=== PATIENT | female | born 1955 | race Caucasian/White ===

== ENCOUNTER → 2016-10-20 | Outpatient (CLI) | payer BC ==
[~2016-10-20] MED LIST: ACET500T33 PO; CYCL10TA2 PO; ESOM40CA PO; GABA-586 PO; HYDR-2762 PO; IBUP-1060 PO; IOHEXOL 180 MG/ML 10 ML VIAL. ONE; MELO7.5T29 PO; methylPREDNISolone ACETATE 40 MG/ML VIAL. ONE; methylPREDNISolone ACETATE 80 MG/ML VIAL. ONE
--- NOTE | 2016-10-21 01:46 | PAIN ---
DATE OF SERVICE: 10/20/2016 INITIAL CONSULTATION FOR PAIN CLINIC CHIEF COMPLAINT: Low back and left lower extremity pain. HISTORY OF PRESENT ILLNESS: This is a 61-year-old female who presents with history of pain for about 2 months, increasing gradually, not a result of any specific injury or action that she is aware of, but ____ over time with increased activity. She has noticed increased pain in the low back initially and then it started radiating to the left posterior gluteus, posterior thigh, posterior lateral thigh and posterior calf. Intermittently, the patient reports it is also on the lateral lower leg, which is painful. It is sharp, stabbing, throbbing in quality, radiating pain, intermittent in intensity, but is becoming more and more constant over time. The patient has had some therapies in the past and doing some exercises on her own off and on, but she stays very active, playing golf, does a lot of bowling and other activities and this is beginning to impede them to some extent. The patient reports she has tried cyclobenzaprine as well as Meloxicam and gabapentin, which helps, but only to a moderate extent, mostly the Meloxicam. The patient reports no loss of motor function, no other complaints, but has been awakening her from sleep about once or twice at night, but not every night. It does not affect her bowel or bladder control, slows her ability to walk, but does not impede it. She is not using any assistive device to ambulate such as canes or walkers. The patient did have previous lumbar laminectomy at the L5-S1 level on the right about 3 years ago. The patient reports her disability rating from 0-10, 10 being the worst, as a 3-6 with family and home responsibilities, also recreation, 3-4 with social activity, 0-1 with occupation, 0-2 with sexual behavior, 0-3 with self-care and 1/10 with life support activities. The patient did have a recent MRI scan of the lumbar spine dated 09/24/2016 showing multilevel disk bulges of annular tears in the neural foraminal region, lateral recess locations L3-L4 and L2-L3 in the left, postoperative changes posteriorly on the right at L5-S1 without significant ____ scar tissue noted with mild to moderate bulging of L5-S1 disk and L4-L5 disk space narrowing and mild bulging identified as well. PAST MEDICAL HISTORY: Significant for gastroesophageal reflux, hypertension and arthritis. PREVIOUS SURGERY: Include lumbar laminectomy, left knee meniscus repair, right carpal tunnel release and trigger thumbs release bilaterally. CURRENT MEDICATIONS: Include cyclobenzaprine, gabapentin, meloxicam, esomeprazole, and Tylenol. ALLERGIES: THE PATIENT IS ALLERGIC TO TRAMADOL AND HYDROCODONE, BOTH OF WHICH CAUSE HIVES. FAMILY HISTORY: Significant for kidney failure in the patient's mother and heart disease in the patient's father. SOCIAL HISTORY: The patient drinks alcohol about once a week on average, does not smoke. She is , lives with her spouse. No children living at home, lives locally in [place], [place]. REVIEW OF SYSTEMS: The patient's review of systems is positive for those items mentioned in the history of present illness. All systems reviewed and otherwise negative. It is complete, full and well documented on the patient's chart. PHYSICAL EXAMINATION: VITAL SIGNS: The patient's blood pressure 162/97, pulse 77, respirations 18, temperature 98.6 degrees Fahrenheit, height is 5 feet 6-1/2 inches, weight 166 pounds. GENERAL: The patient is awake, alert, oriented, appropriate, very pleasant demeanor. HEENT: Head shows normocephalic, atraumatic. Extraocular movements are intact, symmetrical. Oral cavity, mucous membranes are moist and pink. Dentition is intact. NECK: Shows anterior throat supple without palpable lymphadenopathy noted. Swallow reflex is symmetrical. CHEST: Shows normal on inspection. Breath sounds clear to auscultation bilaterally. HEART: Shows S1 and S2 clear. No murmurs auscultated. ABDOMEN: Soft, nontender, nondistended. No palpable organomegaly. No rebound or guarding demonstrated. BACK: Shows spine grossly in the midline, normal-appearing cervical lordotic curvature, thoracic kyphotic curvature and some slight flattening of lumbar lordotic curvature with well-healed surgical scar noted in the lumbar distribution. Lumbar paraspinous musculature shows symmetrical on inspection with palpation shows some very mild tenderness, but only diffusely in the lower lumbar distribution bilaterally and the paraspinous distribution, but without radiation. No tenderness over the spinous processes, sacrum or sacroiliac regions. The patient shows full rotational motion both laterally greater than 10 degrees right and left as well as extension greater than 10 degrees, forward flexion 45 degrees without exacerbation of pain. Lower extremities show deep tendon reflexes at 2+ in the patellar, 1+ tendo-calcaneus tendons are equal. Motor exam is strong with 5/5 dorsiflexion, extension, quadriceps and hamstring flexion and are symmetrical. Peripheral pulses are 1+ posterior tibial and dorsalis pedis pulses. No peripheral edema is noted. No clubbing, no cyanosis. Lower extremities are warm and dry to touch, equal in color and appearance. Straight leg raise noted to be negative for reproduction of any radicular symptoms bilaterally. Gaenslen's and Jeff's maneuvers are negative bilaterally as well. The patient is able to stand, stand on her toes without difficulty or loss of balance. She is able to walk without difficulty and does not appear to favor the right or left lower extremity, not using any assistive devices to ambulate. IMPRESSION: 1. This is a 61-year-old female with approximately 2-month history of increasing pain in low back, left lower extremity in a radicular fashion. 2. MRI scan as noted. 3. History of hypertension. 4. History of arthritis. PLAN: Options were discussed with the patient including conservative medical management, physical therapy, interventional techniques and she would like to pursue interventional techniques. We discussed a lumbar epidural steroid injection with a caudal approach using description as well as anatomical models to describe the procedure. Risks were then discussed including, but not limited to, bleeding, infection, possibility of epidural hematoma, subsequent neurologic compromise, dural puncture, headaches, spinal cord and/or nerve damage, side effects of steroid medication and poor results regarding pain control. The patient understands and wishes to proceed. The patient will return to clinic in approximately 2 weeks for followup, was counseled on return appointment, activity level and side effects to be aware of. DIAGNOSES: Lumbar radiculopathy with lumbar degenerative disk disease and post-lumbar laminectomy syndrome. PROCEDURE: Caudal approach epidural steroid injection using C-arm fluoroscopic guidance under sterile prep and drape using local anesthetic. MEDICATION INJECTED: 120 mg Depo-Medrol plus 10 mL of preservative-free normal saline and 2 mL of Isovue contrast. CONDITION AT DISCHARGE: Stable. The patient tolerated the procedure well, had no complications. MELINDA LAM MD DR: LEATHA/ahmet JOB#: [id number] / [id number] VENKAT oLck MD
== END | disposition home or self-care (01) ==
LOC: PNCL 07:28
PROVIDERS: ATTEND Anesthesiology
DX: M51.16 Intervertebral disc disorders with radiculopathy, lumbar region (principal); M96.1 Postlaminectomy syndrome, not elsewhere classified; M19.90 Unspecified osteoarthritis, unspecified site; I10 Essential (primary) hypertension; K21.9 Gastro-esophageal reflux disease without esophagitis; Z72.89 Other problems related to lifestyle; Z88.6 Allergy status to analgesic agent; Z88.5 Allergy status to narcotic agent
CPT/HCPCS: 62323; J1030; J1040

== ENCOUNTER → 2016-11-18 | Outpatient (CLI) | payer BC | END | disposition home or self-care (01) | LOC: PNCL 09:06 | PROVIDERS: ATTEND Anesthesiology | DX: M51.16 Intervertebral disc disorders with radiculopathy, lumbar region (principal); M96.1 Postlaminectomy syndrome, not elsewhere classified; M19.90 Unspecified osteoarthritis, unspecified site; I10 Essential (primary) hypertension; K21.9 Gastro-esophageal reflux disease without esophagitis; Z72.89 Other problems related to lifestyle; Z91.048 Other nonmedicinal substance allergy status | CPT/HCPCS: 62323; J1030; J1040 ==

== ENCOUNTER → 2017-10-25 | Outpatient (CLI) | payer BC ==
[2017-10-25 14:54] LABS: ADD MAN DIFF? NO
[2017-10-25 14:56] LABS: BASO % 1 % (0-3); EOS # 0.1 x10^3/uL (0.0-0.7); EOS % 2 % (0-3); HEMATOCRIT 38.9 % (36.0-47.0); HEMOGLOBIN 13.7 g/dL (12.0-15.5); LYMPH # 1.6 x10^3/uL (1.0-4.8); LYMPH % 27 % (24-48); MEAN CORPUSCULAR HEMOGLOBIN 33 pg (25-35); MEAN CORPUSCULAR HGB CONC 35 g/dL (31-37); MEAN CORPUSCULAR VOLUME 93 fL (79-100); MONO # 0.4 x10^3/uL (0.0-1.1); MONO % 7 % (0-9); NEUT # 3.7 x10^3uL (1.8-7.7); NEUT % 64 % (31-73); PLATELET COUNT 250 x10^3/uL (140-400); RED BLOOD COUNT 4.19 x10^6/uL (3.50-5.40); RED CELL DISTRIBUTION WIDTH 12.8 % (11.5-14.5); WHITE BLOOD COUNT 5.8 x10^3/uL (4.0-11.0)
[2017-10-25 15:12] LABS: ALBUMIN 3.9 g/dL (3.4-5.0); ALBUMIN/GLOBULIN RATIO 1.1 (1.0-1.7); ALK PHOS 89 U/L (46-116); ALT (SGPT) 69 U/L (14-59); ANION GAP 13 (6-14); AST (SGOT) 23 U/L (15-37); BLOOD UREA NITROGEN 14 mg/dL (7-20); BUN/CREATININE RATIO 16 (6-20); CALCIUM 9.1 mg/dL (8.5-10.1); CARBON DIOXIDE 28 mmol/L (21-32); CHLORIDE 97 mmol/L (98-107); CREATININE 0.9 mg/dL (0.6-1.0); GFR 63.9; GLUCOSE 86 mg/dL (70-99); POTASSIUM 3.9 mmol/L (3.5-5.1); SODIUM 138 mmol/L (136-145); TOTAL BILIRUBIN 0.8 mg/dL (0.2-1.0); TOTAL PROTEIN 7.3 g/dL (6.4-8.2)
[2017-10-26 22:20] LABS: MRSA BY PCR Negative (Negative)
== END | disposition home or self-care (01) ==
LOC: SURGPAT 14:19
DX: Z01.818 Encounter for other preprocedural examination (principal); M54.16 Radiculopathy, lumbar region; M48.061 Spinal stenosis, lumbar region without neurogenic claudication
CPT/HCPCS: 36415; 80053; 85025; 87641

== ENCOUNTER 2017-11-15 07:04 | Observation (INO) | payer BC ==
[~2017-11-15 07:04] MED LIST changes: -ACET500T33 PO; -CYCL10TA2 PO; +DESFLURANE 61 TO 120 MINUTES IH; +DEXAMETHASONE SOD PHOS 20 MG/5 ML VIAL.; -ESOM40CA PO; -GABA-586 PO; -HYDR-2762 PO; -IBUP-1060 PO; -IOHEXOL 180 MG/ML 10 ML VIAL. ONE; +LIDOCAINE 1% PF 2 ML VIAL. ID; +LIDOCAINE 2% PF Vial for OR 5 ML VIAL.; -MELO7.5T29 PO; +MORPHINE SULFATE 2 MG/ML DISP.SYRIN. IV; +ONDANSETRON PF 4 MG/2 ML VIAL.; +ONDANSETRON PF 4 MG/2 ML VIAL. IV; +PHENYLEPHRINE 10 MG/ML VIAL.; +PROPOFOL 20 ML IV; +PROPOFOL 50 ML IV; +REMIFENTANIL 1 MG VIAL. IV; +ROCURONIUM 50 MG/5 ML VIAL.; +ceFAZolin 2GM PREMIX 2 GM/50 ML BAG IV; +fentaNYL PF VIAL 100 MCG/2 ML VIAL IV; -methylPREDNISolone ACETATE 40 MG/ML VIAL. ONE; -methylPREDNISolone ACETATE 80 MG/ML VIAL. ONE
[2017-11-15] MEDS: IV RINGERS,LACTATED 1000ML 1,000 ML IV ×2 (07:43→11:58)
[2017-11-15] MEDS: SCOPOLAMINE 1.5MG PATCH. TD (08:13)
[2017-11-15] MEDS ORDERED: MINERAL OIL/PETROLATUM,WHITE OPHTH OINT 3.5GM TUBE. (08:22)
[2017-11-15] MEDS ORDERED: NEOSTIGMINE METHYLSULFATE 5 MG/5 ML SYRINGE. (08:24)
[2017-11-15] MEDS ORDERED: fentaNYL PF VIAL 100 MCG/2 ML VIAL (08:24)
[2017-11-15] MEDS ORDERED: MIDAZOLAM HCL/PF 2 MG/2 ML VIAL. (08:25)
[2017-11-15] MEDS ORDERED: GLYCOPYRROLATE 1 MG/5 ML VIAL. (08:25)
[2017-11-15] MEDS: GELATIN SPONGE SIZE 100. (09:23)
[2017-11-15] MEDS: THROMBIN TOPICAL 20,000 UNIT SPRAY.SYRN KIT TP (09:23)
[2017-11-15] MEDS: BACITRACIN 50,000 UNIT in IV NORMAL SALINE 1000ML BAG 1,000 ML IRR (09:23)
[2017-11-15] MEDS: BUPIVAC MPF-EPI 0.5%-1:200000 30 ML VIAL. INJ (09:23)
[2017-11-15] MEDS: KETOROLAC 60 MG/2 ML INJ FOR OR. (09:23)
[2017-11-15] MEDS ORDERED: PROPOFOL 50 ML IV (09:35)
[2017-11-15] MEDS ORDERED: REMIFENTANIL 1 MG VIAL. IV (10:32)
[2017-11-15] MEDS: PROCHLORPERAZINE 10 MG/2 ML VIAL. IV (11:58)
[2017-11-15] MEDS: METHOCARBAMOL 750 MG TABLET PO (12:15)
[2017-11-15] MEDS: POTASSIUM CL 20MEQ D5-0.45NACL 1,000 ML IV (13:58)
[2017-11-15] MEDS ORDERED: fentaNYL PF VIAL 100 MCG/2 ML VIAL IV (14:00)
[2017-11-15] MEDS ORDERED: CALCIUM CARBONATE 500 MG TAB.CHEW PO (14:00)
[2017-11-15] MEDS ORDERED: diphenhydrAMINE HCL 25 MG CAPSULE PO (14:00)
[2017-11-15] MEDS ORDERED: diphenhydrAMINE 50 MG/ML VIAL IV (14:00)
[2017-11-15] MEDS ORDERED: MAGNESIUM HYDROXIDE 2,400 MG/30 ML ORAL.SUSP. PO (14:00)
[2017-11-15] MEDS ORDERED: ZOLPIDEM 5 MG TABLET. PO (14:00)
[2017-11-15] MEDS ORDERED: MAG HYDROX/ALUMINUM HYD/SIMETH 30 ML ORAL.SUSP PO (14:00)
[2017-11-15] MEDS ORDERED: METHOCARBAMOL 750 MG TABLET PO (14:00)
[2017-11-15] MEDS ORDERED: 0.9 % SODIUM CHLORIDE 10 ML DISP.SYRIN. IV (14:00)
[2017-11-15] MEDS: amLODIPine BESYLATE 5 MG TABLET PO (15:00)
[2017-11-15] MEDS: CITALOPRAM 20 MG TABLET. PO (15:00)
[2017-11-15] MEDS: PANTOPRAZOLE 40 MG TABLET.DR. PO (16:30)
[2017-11-15] MEDS: DOCUSATE SODIUM 100 MG CAPSULE. PO (20:54)
[2017-11-15] MEDS ORDERED: DOCUSATE SODIUM 100 MG CAPSULE. PO (21:00)
[2017-11-15] MEDS ORDERED: POTASSIUM CITRATE 99 MG PO (21:00)
[2017-11-16] MEDS: ACETAMINOPHEN 325 MG TABLET. PO ×2 (03:26→09:58)
[2017-11-16] MEDS: PANTOPRAZOLE 40 MG TABLET.DR. PO (07:00)
[2017-11-16] MEDS: amLODIPine BESYLATE 5 MG TABLET PO (09:00)
[2017-11-16] MEDS: CITALOPRAM 20 MG TABLET. PO (09:03)
[2017-11-16] MEDS: DOCUSATE SODIUM 100 MG CAPSULE. PO (09:03)
== END 2017-11-16 13:10 | disposition home or self-care (01) ==
LOC: SURG 07:04 → 4 SOUTHEST 13:55
DX: M48.07 Spinal stenosis, lumbosacral region (principal); M54.17 Radiculopathy, lumbosacral region; I10 Essential (primary) hypertension; K21.9 Gastro-esophageal reflux disease without esophagitis; Z82.49 Family history of ischemic heart disease and other diseases of the circulatory system
CPT/HCPCS: 63047; 76000; 88304; 88311; 97161-GP; A7015; G0378; G0379; J0690; J0780; J1100; J1885; J2001; J2250; J2405; J2704; J2710; J3010; J3490; J7030; J7120

== ENCOUNTER → 2020-02-23 | Outpatient (CLI) | payer BC ==
[2017-11-16 09:00] VITALS: BP 99/59
[~2020-02-23] MED LIST changes: +ACET500T33 PO; +AMLO-186 PO; +B12/1TAB3 PO; +BETA15CR5 TP; +CITA20TA6 PO; +CYCL10TA2 PO; -DESFLURANE 61 TO 120 MINUTES IH; -DEXAMETHASONE SOD PHOS 20 MG/5 ML VIAL.; +DOCU-109 PO; +ESOM40CA PO; +GABA300C18 PO; +HYDR-2765 PO; +IBUP-1060 PO; +LACT1CAP6 PO; -LIDOCAINE 1% PF 2 ML VIAL. ID; -LIDOCAINE 2% PF Vial for OR 5 ML VIAL.; +MELO7.5T29 PO; +METH-38 PO; -MORPHINE SULFATE 2 MG/ML DISP.SYRIN. IV; +MULT-445 PO; -ONDANSETRON PF 4 MG/2 ML VIAL.; -ONDANSETRON PF 4 MG/2 ML VIAL. IV; -PHENYLEPHRINE 10 MG/ML VIAL.; +POTA15TA PO; -PROPOFOL 20 ML IV; -PROPOFOL 50 ML IV; -REMIFENTANIL 1 MG VIAL. IV; -ROCURONIUM 50 MG/5 ML VIAL.; -ceFAZolin 2GM PREMIX 2 GM/50 ML BAG IV; -fentaNYL PF VIAL 100 MCG/2 ML VIAL IV
--- NOTE | 2020-02-23 18:35 | KCIC ---
EXAM: MRI LEFT KNEE DATE: 02/23/2020 2:45 PM CLINICAL INDICATION: LEFT KNEE PAIN / Spl. Instructions: Previous meniscal surgery 2015 / History: Left medial knee pain in last few months. Painful to fully straighten. COMPARISON: None. TECHNIQUE: Multiplanar, multisequence MRI of the left knee was performed without contrast. FINDINGS: Small knee joint effusion. No Ramos's cyst. ACL and PCL are intact. MCL is intact although bowed by medial meniscus. Fibular collateral ligament, biceps femoris, IT band and popliteus are intact. Extensor mechanism is intact. Suprapatellar fat pad edema may be seen with anterior knee pain/impingement. There is diffuse degeneration/maceration of the posterior horn medial meniscus with suspected full-thickness radial component. Lateral meniscus appears intact. Chondral effacement medial compartment with marrow edema in cystic change within the medial tibial plateau and femoral condyle. No acute fracture or osteonecrosis. IMPRESSION: Severe left knee joint osteoarthritis with chondral effacement of the medial compartment, marrow edema and cystic change. Posterior horn medial meniscus radial tear with degeneration/maceration and extrusion of the body segment is also seen. Electronically signed by: Jon Escalante MD (02/23/2020 6:32 PM) [facility]
== END ==
LOC: KCIC MRI 14:33
PROVIDERS: ATTEND Orthopaedic Surgery
DX: S83.242A Other tear of medial meniscus, current injury, left knee, initial encounter (principal); M25.462 Effusion, left knee; M17.12 Unilateral primary osteoarthritis, left knee; M79.4 Hypertrophy of (infrapatellar) fat pad; X58.XXXA Exposure to other specified factors, initial encounter; Y93.89 Activity, other specified; Y92.89 Other specified places as the place of occurrence of the external cause; Y99.8 Other external cause status
CPT/HCPCS: 73721